=== PATIENT | male | born 1960 | race Two or more races ===

== ENCOUNTER 2018-08-19 09:00 | Inpatient (IN) | payer OTHER ==
[~2018-08-19] VITALS: Ht 175.3 cm; Wt 90.7 kg
[~2018-08-19 09:00] MED LIST: CIPRO500 MG PO; CIPROFLOXACIN750 MG PO; CLONAZEPAM0.5 MG PO; CLONAZEPAM1 MG PO; DOCUSATE SODIU100 MG PO; GABAPENTIN800 MG PO; LOSARTAN-HCTZ1 EAC2 PO; LYRICA200 MG PO; METHYLPRED4 MG/DOSE- PO; PERCOCET 5/3251 TAB PO; PROZAC10 M1 PO; RECTICARE30 GM TP; SIMVASTATIN40 MG PO; ULTRACET PO
[2018-08-19] MEDS ORDERED: ATIVAN PO (10:56)
[2018-08-19] MEDS ORDERED: CLONAZEPAM0.5 MG PO (11:15)
[2018-08-24] MEDS ORDERED: AMOX-CLAV 875-1 EACH PO (09:47)
[2018-08-24] MEDS ORDERED: DOCUSATE SODIU100 MG PO (09:47)
[2018-08-24] MEDS ORDERED: GABAPENTIN800 MG PO (09:47)
[2018-08-24] MEDS ORDERED: CLONAZEPAM1 MG PO (09:48)
[2018-08-24] MEDS ORDERED: PERCOCET 5-3251 EACH PO (09:49)
[2018-08-24] MEDS ORDERED: ACETAMINOPHEN-1 EAC2 PO (10:01)
[2018-08-24] MEDS ORDERED: LYRICA150 MG PO (10:01)
== END 2018-08-25 13:43 | disposition home or self-care (01) | DRG 455 ==
LOC: O/R 08-24 04:40 → SURH 08-24 04:40
PROVIDERS: Orthopaedic Surgery Orthopaedic Surgery of the Spine
PROC: 0SG0071 Fusion of Lumbar Vertebral Joint with Autologous Tissue Substitute, Posterior Approach, Posterior Column, Open Approach (ICD-10-PCS; 2018-08-24)
PROC: 0ST20ZZ Resection of Lumbar Vertebral Disc, Open Approach (ICD-10-PCS; 2018-08-24)
PROC: 0SG00AJ Fusion of Lumbar Vertebral Joint with Interbody Fusion Device, Posterior Approach, Anterior Column, Open Approach (ICD-10-PCS; 2018-08-24)
PROC: 07DS3ZZ Extraction of Vertebral Bone Marrow, Percutaneous Approach (ICD-10-PCS; 2018-08-24)
PROC: 0SG00A0 Fusion of Lumbar Vertebral Joint with Interbody Fusion Device, Anterior Approach, Anterior Column, Open Approach (ICD-10-PCS; principal; 2018-08-24 07:00)
DX: M48.061 Spinal stenosis, lumbar region without neurogenic claudication (principal); M51.16 Intervertebral disc disorders with radiculopathy, lumbar region; M43.16 Spondylolisthesis, lumbar region; I10 Essential (primary) hypertension